=== PATIENT | female | born 1995 | race Caucasian/White ===

== ENCOUNTER 2016-07-09 15:51 | Inpatient (IN) | payer OTHER ==
--- NOTE | ~2016-07-09 | CO ---
Unit #: [id number] #: [id number] Patient: DUNCAN LOWRY V [id number] [place] [address] [id number] MR#: [id number] NAME: DUNCAN LOWRY V. ROOM: P252 Age: 21 Sex: F Admission Date: 07/09/2016 : 1995 Attending Physician: Scout Nash M.D. Primary Care Physician: Mahamed Manning A.P.R.N. Consultation Date: 07/10/2016 CONSULTATION REPORT SUBJECTIVE Duncan is a 21-year-old, who had an abnormal urinalysis on admission. She had no complaints of urgency, frequency, or dysuria. OBJECTIVE Admission urinalysis, 4+ bacteria. ASSESSMENT Urinary tract infection. PLAN Bactrim DS one p.o. b.i.d. x3 days. Dictated by... Padmini Durant P.A.-C. for Varsha Klein/dagoberto TD: 07/12/2016 02:53 JOB #: [id number] CONSULTATION REPORT Page 1 of 1 X Padmini Durant CONSULTATION REPORT
--- NOTE | ~2016-07-09 | DS ---
Unit #: [id number] #: [id number] Patient: DUNCAN LOWRY V [id number] [facility] [address] [place] [address] [id number] I MR#: [id number] NAME: DUNCAN LOWRY V. ROOM: P252 Age: 21 Sex: F Admission Date: 07/09/2016 : 1995 Discharge Date: 07/11/2016 Attending Physician: Scout Nash M.D. Primary Care Physician: Mahamed Manning A.P.R.N. DISCHARGE SUMMARY REASON FOR ADMISSION The patient is a 21-year-old single white female, admitted to the [facility] unit complaining of suicidal ideation. HOSPITAL COURSE The patient was admitted to the [facility] unit and continued on previously prescribed medications. No medication changes were undertaken, but the patient was started on Bactrim DS secondary to a potential urinary tract infection. The patient's stay in the hospital was an otherwise uneventful one. She was already requesting discharge on 07/10/2016, but agreed to remain hospitalized for one further day of observation. By 07/11/2016, the patient was denying suicidal or homicidal ideation and was in bright spirits. She requested discharge, and it was so ordered. FINAL DIAGNOSES Schizoaffective disorder, mild mental retardation. DISPOSITION ON DISCHARGE The patient was discharged on the following medications; Trileptal 600 mg b.i.d. for mood stabilization, Desyrel 100 mg at bedtime p.r.n. insomnia, Abilify 20 mg once daily for mood stabilization, Benadryl 50 mg q.6 hours p.r.n. anxiety, Bactrim DS one tablet b.i.d. for urinary tract infection x3 days. DISCHARGE INSTRUCTIONS No dietary or physical restrictions were placed on the patient at the time of discharge. FOLLOWUP She will follow up through the auspices of community mental health resources. PROGNOSIS The patient's prognosis is considered fair. Dictated by... Scout Nash M.D. CB/dagoberto TD: 07/12/2016 05:36 JOB #: [id number] Unit #: [id number] #: [id number] Patient: DUNCAN LOWRY V DISCHARGE SUMMARY Page 1 of 1 X Scout Nash MD DISCHARGE SUMMARY
--- NOTE | ~2016-07-09 | PA ---
Unit #: [id number] #: [id number] Patient: DUNCAN LOWRY V [id number] [facility] [address] [place] [address] [id number] MR#: [id number] NAME: DUNCAN LOWRY V. ROOM: P252 Age: 21 Sex: F Admission Date: 07/09/2016 : 1995 Date of Assessment: 07/10/2016 Attending Physician: Scout Nash M.D. Admitting Physician: Scout Nash M.D. Primary Care Physician: Mahamed Manning A.P.R.N. PSYCHIATRIC ASSESSMENT IDENTIFYING INFORMATION The patient is a 21-year-old white female well known to this physician. She is readmitted after she had voiced suicidal ideation. CHIEF COMPLAINT None given. INFORMANT Patient, reliability is good. HISTORY OF PRESENT ILLNESS The patient is a 21-year-old white female last admitted to this facility in April of this year under the care of this physician. She is readmitted after reporting increased suicidal ideation. The patient reports that she is currently living with an aunt but wishes to be placed in a [facility]. The patient reports that she was having suicidal thoughts apparently because she does not wish to go to a [facility]. The patient is currently followed at [facility] and did make suicidal threats at that facility. When seen today, the patient states that she is feeling better and is reporting reduction in suicidal ideation. Her current psychotropic medications include Trileptal, trazodone, Abilify, and Benadryl, and she states that she has been compliant with these medications. She denies any recent changes in sleep or appetite and is reporting reduced suicidal ideation when seen today. For more complete history of present illness, please refer to previously dictated notes. PAST PSYCHIATRIC HISTORY Reviewed, no changes. PAST MEDICAL HISTORY Reviewed, no changes. MEDICATIONS Trileptal, trazodone, Abilify, and Benadryl. ALLERGIES None. FAMILY HISTORY Reviewed, no changes. SOCIAL HISTORY Reviewed, no changes. Unit #: [id number] #: [id number] Patient: DUNCAN LOWRY V MENTAL STATUS EXAMINATION Examination at this time reveals the patient to be an obese white female appearing her stated age. She is in no apparent physical distress at the time of examination. She is awake, alert, and oriented in all spheres. Her mood is mildly dysphoric, her affect congruent. Speech is generally well coherent. There are no gross deficits in memory or cognition noted. Intelligence is judged to be in the below average range based on fund of knowledge. The patient is generally cooperative during interview. She is currently reporting positive suicidal ideation. She denies homicidal ideation. She denies any psychotic symptoms. Her judgment and insight appear to be at baseline. ASSETS AND LIABILITIES The patient's assets are to be assessed. Liabilities: Lack of resources. DIAGNOSTIC IMPRESSION 1. Schizoaffective disorder. 2. Mild mental retardation. 3. Obesity. TREATMENT PLAN The patient remains hospitalized for safety and stabilization. At this point, no medication changes will be undertaken as the patient is already reporting some resolution in her thoughts of suicide. ESTIMATED LENGTH OF STAY 2 to 4 days. Dictated by... Scout Nash M.D. JOHAN/suri TD: 07/10/2016 12:50 JOB #: [id number] PSYCHIATRIC ASSESSMENT Page 1 of 1 X Scout Nash MD X PSYCHIATRIC ASSESSMENT
--- NOTE | ~2016-07-09 | HP ---
Unit #: [id number] #: [id number] Patient: DUNCAN LOWRY V [id number] [facility] [address] [place] [address] [id number] I MR#: [id number] NAME: DUNCAN LOWRY V. ROOM: P252 Age: 21 Sex: F Admission Date: 07/09/2016 : 1995 Attending Physician: Scout Nash M.D. Admitting Physician: Scout Nash M.D. Primary Care Physician: Mahamed Manning A.P.R.N. HISTORY AND PHYSICAL HISTORY OF PRESENT ILLNESS Duncan is a 21 year old admitted to [address] [place] [address] with depression verbalizing wanting to hurt herself. She has had numerous admissions to this facility. PAST MEDICAL HISTORY 1. Obesity. 2. MR. PAST SURGICAL HISTORY Nothing reported. ALLERGIES No known drug allergies. SOCIAL HISTORY Smokes one pack per day. Denies alcohol or illicit drug use. FAMILY HISTORY Medically noncontributory. REVIEW OF SYSTEMS CONSTITUTIONAL: No fever or chills. HEENT: Denies any sore throat, ear pain or runny nose. CARDIOVASCULAR: Denies chest pain, irregular heart rhythm or palpitations. CHEST: Denies shortness of breath or cough. No hemoptysis. GASTROINTESTINAL: Denies nausea, vomiting, diarrhea or chronic constipation. ENDOCRINE: Denies history of increased thirst or urination. No recent significant weight loss or gain. GENITOURINARY: Denies dysuria, frequency, or hematuria. SKIN: Denies any rashes. HEMATOLOGIC: Denies history of increased bleeding or bruising. MUSCULOSKELETAL: Denies any hot, swollen joints. No generalized muscle pain. NEUROLOGIC: Denies problems with vision or speech. No frequent, severe headaches. No numbness, tingling or weakness in any extremities. Denies loss of bladder or bowel control. CURRENT MEDICATIONS 1. Abilify 20 mg q. day. 2. Milk of Magnesia p.r.n. 3. Maalox p.r.n. 4. Tylenol p.r.n. Unit #: [id number] #: [id number] Patient: DUNCAN LOWRY V 5. Benadryl p.r.n. 6. Desyrel p.r.n. 7. Trileptal 600 mg b.i.d. 8. Nicotine patch 14 mg q. day. PHYSICAL EXAMINATION GENERAL: Alert, well nourished. No apparent distress. VITAL SIGNS: Blood pressure 130/80, heart rate 80, respirations 16, and temperature 98.6. WEIGHT: 251. HEIGHT: 5 feet 7 inches. SKIN: Warm and dry without rash or lesion. HEENT: Normocephalic. TMs not viewed. Oral and nasal passages clear. Conjunctivae clear. PERRLA. EOMs intact. NECK: Supple without lymphadenopathy or thyromegaly. HEART: Regular rate and rhythm without murmur. LUNGS: Clear. ABDOMEN: Soft, nontender. : Not done. EXTREMITIES: No evidence of cyanosis, clubbing or edema. Moves all without focal deficit. NEUROLOGICAL: Grossly within normal limits. Cranial Nerves: II: Visual reyes are intact. III, IV AND : Extraocular movements are intact. Pupils are equal, round and reactive to light. V: Facial sensation is grossly normal. VII: Facial movements and expression are normal. VIII: Auditory acuity grossly intact. IX, X: Uvula is midline. Phonation is normal. XI: Patient shrugs shoulders and turns head normally. XII: Tongue protrudes in the midline. Sensory and Motor Function: Sensory and motor sensation is grossly normal. Motor: moves all extremities well. Coordination: Gait is normal. Deep Tendon Reflexes: Intact. IMPRESSION Psychiatric admission. RECOMMENDATIONS PSYCHIATRIC: Per psychiatrist. MEDICAL: I see no contraindication to participate in this facility's activities. MEDICAL PROGNOSIS Good. MEDICAL CONDITION Stable. Dictated by... Padmini Durant P.A.-C. for Varsha Klein/suri TD: 07/10/2016 11:08 JOB #: [id number] Unit #: [id number] #: [id number] Patient: DUNCAN LOWRY V HISTORY AND PHYSICAL Page 1 of 1 X Padmini Durant HISTORY AND PHYSICAL
[2016-07-10 10:02] LABS: BASOPHIL% 0.3 % (0-2.5); EOSINOPHIL# 0.1 X10e3 (0-0.7); EOSINOPHIL% 0.8 % (0.0-7.0); HEMATOCRIT 42.6 % (35.0-45.0); HEMOGLOBIN 14.1 gm/dL (12.0-16.0); LYMPHOCYTE# 2.7 X10e3 (1.0-3.5); LYMPHOCYTE% 26.5 % (17.0-45.0); MEAN CELL VOLUME 87.7 FL (83-96); MEAN CORPUSCULAR HEMOGLOBIN 28.9 PG (28-34); MEAN PLATELET VOLUME 8.9 FL (6.5-11.5); MONOCYTE# 0.6 X10e3 (0-1.0); MONOCYTE% 6.1 % (3.0-12.0); NEUTROPHIL# 6.8 X10e3 (1.5-7.1); NEUTROPHIL% 66.3 % (40-75); PLATELET COUNT 262 X10e3 (140-420); RED BLOOD COUNT 4.86 X10e (3.90-5.30); RED CELL DISTRIBUTION WIDTH 13.4 % (11.0-15.5); WHITE BLOOD COUNT 10.3 X10e3 (4.0-10.5)
[2016-07-10 10:08] LABS: DIFF IND NO
[2016-07-10 10:09] LABS: ALBUMIN SERUM 3.8 g/dL (3.5-5.0); BILIRUBIN,TOTAL 0.6 mg/dL (0.2-2.0); BUN/CREATININE RATIO 15.71; CALCIUM SERUM 9.2 mg/dL (8.4-10.2); CREATININE SERUM 0.7 mg/dL (0.6-1.4); GLOM FILT RATE Estimated 123.9 mL/min (>60); POTASSIUM 4.3 mmol/L (3.5-5.1); PROTEIN TOTAL SERUM 7.1 g/dL (6.0-8.3)
[2016-07-10 12:26] LABS: URINE APPEARANCE TURBID; URINE BILIRUBIN NEG (NEG); URINE BLOOD NEG (NEG); URINE COLOR YELLOW; URINE GLUCOSE NEG (NEG); URINE KETONE NEG (NEG); URINE LEUKOCYTE ESTERASE 2+ (NEG); URINE NITRATE NEG (NEG); URINE PH 6.5 (5-8); URINE PROTEIN NEG (NEG); URINE SPECIFIC GRAVITY 1.027 (1.003-1.035)
[2016-07-10 12:32] LABS: URINE BACTERIA AUWI 4+ (NEGATIVE); URINE SQUAMOUS EPITHELIAL CELL MANY /[HPF]; UWBCS1 AUWI 50-100 (0-5)
[2016-07-10 12:50] LABS: AMPHETAMINE NEG (NEG); BARBITURATES NEG (NEG); BENZODIAZEPINES NEG (NEG); COCAINE NEG (NEG); MARIJUANA NEG (NEG); OPIATES NEG (NEG); TRICYCLIC ANTIDEPRESSANTS POS (NEG); U HYALINE CASTS AUWI 0-2 /[LPF]; U METHADONE NEG (NEG); URBCS1 AUWI NEG /[HPF] (0-2); URINE MUCUS PRESENT
== END 2016-07-11 15:45 | disposition home or self-care (01) | DRG 885 ==
LOC: P2L 15:51
PROVIDERS: Specialist
DX: F25.9 Schizoaffective disorder, unspecified (principal); F70 Mild intellectual disabilities; R45.851 Suicidal ideations; N39.0 Urinary tract infection, site not specified; E66.9 Obesity, unspecified; Z68.39 Body mass index [BMI] 39.0-39.9, adult; F17.210 Nicotine dependence, cigarettes, uncomplicated
CPT/HCPCS: 80053; 80307; 81003; 85025

== ENCOUNTER 2016-09-17 21:42 | Inpatient (IN) | payer OTHER ==
--- NOTE | ~2016-09-17 | DS ---
Unit #: [id number] #: [id number] Patient: DUNCAN LOWRY V [id number] [facility] [address] [place] [address] [id number] I MR#: [id number] NAME: DUNCAN LOWRY V. ROOM: [facility] Age: 21 Sex: F Admission Date: 09/18/2016 : 1995 Discharge Date: 09/19/2016 Attending Physician: Scout Nash M.D. Primary Care Physician: Primary Care Physician No DISCHARGE SUMMARY REASON FOR ADMISSION The patient is a 21-year-old white female with a history of schizoaffective disorder and mild mental retardation admitted after she had quarreled with her mother and endorsed suicidal ideation. HOSPITAL COURSE The patient was admitted to the [facility] Unit and placed on suicide precautions. She was continued on previously prescribed medications. Abilify was moved to nighttime dosing given the patient's complaints of daytime sedation. By 09/19/2016, the patient was denying suicidal ideation and requested discharge, and it was so ordered. FINAL DIAGNOSES 1. Schizoaffective disorder. 2. Mild mental retardation. 3. Morbid obesity. DISPOSITION ON DISCHARGE The patient was discharged on the following medications: 1. Abilify 20 mg at bedtime for mood stabilization. 2. Motrin 400 mg q. 6 hours p.r.n. knee pain. 3. Elavil 150 mg at bedtime for sleep. 4. Trileptal 600 mg twice daily for mood stabilization. 5. Depo-Provera 1 vial IM q. month for contraception. DIET AND ACTIVITY No dietary or physical restrictions placed on the patient at the time of discharge. FOLLOWUP Followup will take place through the auspices of [facility] mental health resources. PROGNOSIS Considered fair. Dictated by... Scout Nash M.D. CB/suri Unit #: [id number] #: [id number] Patient: DUNCAN LOWRY V TD: 09/19/2016 12:34 JOB #: [id number] DISCHARGE SUMMARY Page 1 of 1 X Scout Nash MD X DISCHARGE SUMMARY
--- NOTE | ~2016-09-17 | HP ---
Unit #: [id number] #: [id number] Patient: DUNCAN LOWRY V [id number] [place] [address] [id number] I MR#: [id number] NAME: DUNCAN LOWRY V. ROOM: P266 Age: 21 Sex: F Admission Date: 09/18/2016 : 1995 Attending Physician: Scout Nash M.D. Admitting Physician: Scout Nash M.D. Primary Care Physician: Primary Care Physician No HISTORY AND PHYSICAL HISTORY OF PRESENT ILLNESS Duncan is a 21 year old admitted to [address] [place] [address] with depression. PAST MEDICAL HISTORY 1. Obesity 2. MR PAST SURGICAL HISTORY Nothing reported. ALLERGIES No known drug allergies. SOCIAL HISTORY Smokes one pack per day. Denies alcohol and illicit drug use. FAMILY HISTORY Medically noncontributory. REVIEW OF SYSTEMS CONSTITUTIONAL: No fever or chills. HEENT: Denies any sore throat, ear pain or runny nose. CARDIOVASCULAR: Denies chest pain, irregular heart rhythm or palpitations. CHEST: Denies shortness of breath or cough. No hemoptysis. GASTROINTESTINAL: Denies nausea, vomiting, diarrhea or chronic constipation. ENDOCRINE: Denies history of increased thirst or urination. No recent significant weight loss or gain. GENITOURINARY: Denies dysuria, frequency, or hematuria. SKIN: Denies any rashes. HEMATOLOGIC: Denies history of increased bleeding or bruising. MUSCULOSKELETAL: Denies any hot, swollen joints. No generalized muscle pain. NEUROLOGIC: Denies problems with vision or speech. No frequent, severe headaches. No numbness, tingling or weakness in any extremities. Denies loss of bladder or bowel control. CURRENT MEDICATIONS 1. Abilify 20 mg q.h.s. 2. Amitriptyline 150 mg q.h.s. 3. Motrin 400 mg q 6 hours p.r.n. 4. Trileptal 600 mg b.i.d. Unit #: [id number] #: [id number] Patient: DUNCAN LOWRY V 5. Milk of Magnesia p.r.n. 6. Maalox p.r.n. 7. Tylenol p.r.n. 8. DepoProvera 150 mg IM q 90 days PHYSICAL EXAMINATION GENERAL: Alert, obese, in no apparent distress. VITAL SIGNS: Blood pressure 136/80, heart rate 80, respirations 16, temperature 98.6. WEIGHT: 250 pounds. HEIGHT: 5'7". SKIN: Warm and dry without rash or lesion. HEENT: Normocephalic. TMs not viewed. Oral and nasal passages clear. Conjunctivae clear. Pupils equal, round and reactive to light and accommodation. Extraocular movements intact. NECK: Supple without lymphadenopathy or thyromegaly. HEART: Regular rate and rhythm without murmur. LUNGS: Clear. ABDOMEN: Soft, nontender. : Not done. EXTREMITIES: No evidence of cyanosis, clubbing or edema. Moves all extremities without focal deficit. NEUROLOGICAL: Grossly within normal limits. Cranial Nerves: II: Visual reyes are intact. III, IV AND : Extraocular movements are intact. Pupils are equal, round and reactive to light. V: Facial sensation is grossly normal. VII: Facial movements and expression are normal. VIII: Auditory acuity grossly intact. IX, X: Uvula is midline. Phonation is normal. XI: Patient shrugs shoulders and turns head normally. XII: Tongue protrudes in the midline. Sensory and Motor Function: Sensory and motor sensation is grossly normal. Motor: moves all extremities well. Coordination: Gait is normal. Deep Tendon Reflexes: Intact. IMPRESSION Psychiatric admission. RECOMMENDATIONS PSYCHIATRIC: Per psychiatrist. MEDICAL: I see no contraindications to participating in facility's activities. MEDICAL PROGNOSIS Good. MEDICAL CONDITION Stable. Dictated by... Padmini Durant P.A.-C. for Varsha Klein/emily Unit #: [id number] #: [id number] Patient: DUNCAN LOWRY V TD: 09/18/2016 21:05 JOB #: [id number] HISTORY AND PHYSICAL Page 1 of 1 X Padmini Durant HISTORY AND PHYSICAL
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
[2016-09-18 09:38] LABS: BASOPHIL% 0.2 % (0-2.5); EOSINOPHIL# 0.1 X10e3 (0-0.7); EOSINOPHIL% 0.6 % (0.0-7.0); HEMATOCRIT 39.5 % (35.0-45.0); HEMOGLOBIN 13.2 gm/dL (12.0-16.0); LYMPHOCYTE% 27.3 % (17.0-45.0); MEAN CORPUSCULAR HEMOGLOBIN 29.1 PG (28-34); MEAN CORPUSCULAR HGB CONC 33.5 g/dL (30-36); MEAN PLATELET VOLUME 8.7 FL (6.5-11.5); MONOCYTE# 0.7 X10e3 (0-1.0); MONOCYTE% 6.5 % (3.0-12.0); NEUTROPHIL# 7.2 X10e3 (1.5-7.1); NEUTROPHIL% 65.4 % (40-75); PLATELET COUNT 272 X10e3 (140-420); RED BLOOD COUNT 4.54 X10e (3.90-5.30); RED CELL DISTRIBUTION WIDTH 13.7 % (11.0-15.5)
[2016-09-18 09:58] LABS: DIFF IND NO
[2016-09-18 10:24] LABS: ALBUMIN SERUM 3.7 g/dL (3.5-5.0); BILIRUBIN,TOTAL 0.5 mg/dL (0.2-2.0); BUN/CREATININE RATIO 14.28; CALCIUM SERUM 9.1 mg/dL (8.4-10.2); CREATININE SERUM 0.7 mg/dL (0.6-1.4); GLOM FILT RATE Estimated 123.9 mL/min (>60); PROTEIN TOTAL SERUM 6.8 g/dL (6.0-8.3)
[2016-09-18 10:27] LABS: THYROID STIMULATING HORMONE 3.06 uIU/ml (0.34-5.60)
[2016-09-18 10:36] LABS: FREE THYROXIN (T4) 0.48 ng/dL (0.58-1.64)
[2016-09-18 12:32] LABS: URINE APPEARANCE TURBID; URINE BILIRUBIN NEG (NEG); URINE BLOOD TRACE (NEG); URINE COLOR YELLOW; URINE GLUCOSE NEG (NEG); URINE KETONE NEG (NEG); URINE LEUKOCYTE ESTERASE 2+ (NEG); URINE NITRATE NEG (NEG); URINE PH 5.5 (5-8); URINE PROTEIN TRACE (NEG); URINE SPECIFIC GRAVITY 1.026 (1.003-1.035); URINE UROBILINOGEN 0.2 MG/DL (NEG)
[2016-09-18 12:35] LABS: URINE BACTERIA AUWI 4+ (NEGATIVE); URINE SQUAMOUS EPITHELIAL CELL MANY /[HPF]; UWBCS1 AUWI 50-100 (0-5)
[2016-09-18 12:58] LABS: AMPHETAMINE NEG (NEG); BARBITURATES NEG (NEG); BENZODIAZEPINES NEG (NEG); COCAINE NEG (NEG); MARIJUANA NEG (NEG); OPIATES NEG (NEG); TRICYCLIC ANTIDEPRESSANTS POS (NEG); U METHADONE NEG (NEG)
== END 2016-09-19 18:30 | disposition home or self-care (01) | DRG 885 ==
LOC: P2L 09-18 03:14
PROVIDERS: Specialist
DX: F25.9 Schizoaffective disorder, unspecified (principal); R45.851 Suicidal ideations; E66.01 Morbid (severe) obesity due to excess calories; F70 Mild intellectual disabilities
CPT/HCPCS: 80053; 80307; 81003; 84439; 84443; 84703; 85025

== ENCOUNTER 2016-10-21 20:58 | Inpatient (IN) | payer OTHER ==
[~2016-10-21] VITALS: Ht 170.2 cm; Wt 117.9 kg
--- NOTE | ~2016-10-21 | PN ---
Unit #: [id number] #: [id number] Patient: DUNCAN LOWRY [id number] [facility] [address] [place] [address] [id number] I MR#: [id number] NAME: DUNCAN LOWRY ROOM: P122 Age: 21 Sex: F Admission Date: 10/21/2016 : 1995 Attending Physician: Scout Nash M.D. Admitting Physician: Scout Nash M.D. Primary Care Physician: Primary Care Physician [place] ALLISON PROGRESS NOTES DATE 10/23/2016 DISCUSSION The patient reports some reduction in suicidal ideation when seen today and is generally pleasant and cooperative with peers and staff. We continue current treatment. Dictated by... Scout Nash M.D. CB/sánchez TD: 10/23/2016 16:14 JOB #: [id number] [facility] PROGRESS NOTES Page 1 of 1 X Scout Nash MD X PROGRESS NOTE
--- NOTE | ~2016-10-21 | DS ---
Unit #: [id number] #: [id number] Patient: DUNCAN LOWRY [id number] [facility] [address] [place] [address] [id number] MR#: [id number] NAME: DUNCAN LOWRY ROOM: [facility] Age: 21 Sex: F Admission Date: 10/21/2016 : 1995 Discharge Date: 10/24/2016 Attending Physician: Scout Nash M.D. Primary Care Physician: No Primary Care Physician DISCHARGE SUMMARY REASON FOR ADMISSION The patient is a 21-year-old, single, white female admitted to the hospital after she had made suicidal threats after complaining about her father's driving on a trip home from "[place]." HOSPITAL COURSE The patient was admitted to the [address] [place] [address] unit and placed on suicide precautions. She was restarted on previously prescribed medications. Her stay in the hospital was a brief and uneventful one. By 10/24, she reported a reduction in suicidal ideation and requested discharge. It was so ordered. FINAL DIAGNOSES 1. Schizoaffective disorder. 2. Mild mental retardation. DISPOSITION On discharge, the patient is discharged on the following medications: 1. Amitriptyline 150 mg at bedtime for insomnia. 2. Abilify 20 mg daily for mood stabilization. 3. Motrin 400 mg q.6 hours p.r.n. pain. 4. Trileptal 600 mg twice daily for mood stabilization. DIET AND ACTIVITY No dietary or physical restrictions placed on the patient at the time of discharge. FOLLOWUP To take place through the auspices of "[facility]." PROGNOSIS The patient's prognosis is considered fair. Dictated by... Scout Nash M.D. CB/filemon TD: 10/25/2016 12:56 JOB #: [id number] Unit #: [id number] #: [id number] Patient: DUNCAN LOWRY DISCHARGE SUMMARY Page 1 of 1 X Scout Nash MD X DISCHARGE SUMMARY
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
--- NOTE | ~2016-10-21 | HP ---
Unit #: [id number] #: [id number] Patient: DUNCAN LOWRY [id number] [facility] [address] [place] [address] [id number] MR#: [id number] NAME: DUNCAN LOWRY ROOM: P122 Age: 21 Sex: F Admission Date: 10/21/2016 : 1995 Attending Physician: Scout Nash M.D. Admitting Physician: Scout Nash M.D. Primary Care Physician: Primary Care Physician No HISTORY AND PHYSICAL HISTORY OF PRESENT ILLNESS Duncan is a 21-year-old female admitted to [address] [place] [address] for suicidal ideation and anxiety. PAST MEDICAL HISTORY Obesity. PAST SURGICAL HISTORY None. SOCIAL HISTORY Denies tobacco, alcohol or illegal drug use. She is currently single and living with her aunt and her uncle. FAMILY HISTORY Noncontributory. REVIEW OF SYSTEMS CONSTITUTIONAL: No fever or chills. HEENT: Denies any sore throat, ear pain or runny nose. CARDIOVASCULAR: Denies chest pain, irregular heart rhythm or palpitations. CHEST: Denies shortness of breath or cough. No hemoptysis. GASTROINTESTINAL: Denies nausea, vomiting, diarrhea or chronic constipation. ENDOCRINE: Denies history of increased thirst or urination. No recent significant weight loss or gain. GENITOURINARY: Denies dysuria, frequency, or hematuria. SKIN: Denies any rashes. HEMATOLOGIC: Denies history of increased bleeding or bruising. MUSCULOSKELETAL: Denies any hot, swollen joints. No generalized muscle pain. NEUROLOGIC: Denies problems with vision or speech. No frequent, severe headaches. No numbness, tingling or weakness in any extremities. Denies loss of bladder or bowel control. CURRENT MEDICATIONS Amitriptyline, Abilify, Motrin, Trileptal. ALLERGIES No known drug allergies. Unit #: [id number] #: [id number] Patient: DUNCAN LOWRY PHYSICAL EXAMINATION GENERAL: Alert, oriented, in no acute distress. VITAL SIGNS: Blood pressure 151/87, heart rate 125, respirations 24, temperature 97.8. HEIGHT: 5 foot 7 inches. WEIGHT: 260 pounds. SKIN: Warm and dry without rash or lesion. HEENT: Normocephalic. TMs not viewed. Oral and nasal passages clear. Conjunctivae clear. PERRLA. EOMs intact. NECK: Supple without lymphadenopathy or thyromegaly. HEART: Regular rate and rhythm without murmur. LUNGS: Clear. ABDOMEN: Soft, nontender, without masses or hepatosplenomegaly. : Not done. EXTREMITIES: No evidence of cyanosis, clubbing or edema. Moves all without focal deficit. NEUROLOGICAL: Grossly within normal limits. Cranial Nerves: II: Visual reyes are intact. III, IV AND : Extraocular movements are intact. Pupils are equal, round and reactive to light. V: Facial sensation is grossly normal. VII: Facial movements and expression are normal. VIII: Auditory acuity grossly intact. IX, X: Uvula is midline. Phonation is normal. XI: Patient shrugs shoulders and turns head normally. XII: Tongue protrudes in the midline. Sensory and Motor Function: Sensory and motor sensation is grossly normal. Motor: moves all extremities well. Coordination: Gait is normal. Deep Tendon Reflexes: Intact. IMPRESSION 1. Psychiatric admission. 2. Obesity. RECOMMENDATIONS Psychiatric, per psychiatrist. MEDICAL: I see no contraindications to participating in facility's activities. MEDICAL PROGNOSIS Good. MEDICAL CONDITION Stable. Dictated by... Odalis Fernandez TD: 10/23/2016 00:53 JOB #: [id number] Unit #: [id number] #: [id number] Patient: DUNCAN LOWRY HISTORY AND PHYSICAL Page 1 of 1 X MAXWELL RAMESH APRN X HISTORY AND PHYSICAL
[2016-10-22 10:44] LABS: AMPHETAMINE NEG (NEG); BARBITURATES NEG (NEG); BENZODIAZEPINES NEG (NEG); COCAINE NEG (NEG); MARIJUANA NEG (NEG); OPIATES NEG (NEG); TRICYCLIC ANTIDEPRESSANTS POS (NEG); U METHADONE NEG (NEG)
== END 2016-10-24 17:39 | disposition home or self-care (01) | DRG 885 ==
LOC: P1S 22:50
PROVIDERS: Specialist
DX: F25.9 Schizoaffective disorder, unspecified (principal); F70 Mild intellectual disabilities; E66.9 Obesity, unspecified
CPT/HCPCS: 80307; 84703

== ENCOUNTER 2016-11-04 23:00 | Inpatient (IN) | payer OTHER ==
[~2016-11-04] VITALS: Ht 170.2 cm; Wt 117.9 kg
--- NOTE | ~2016-11-04 | EKG ---
PATIENT: DUNCAN LOWRY UNIT #: [id number] Ventricular Rate: 99 BPM Atrial Rate: 99 BPM P-R Interval: 130 ms QRS Duration: 78 ms Q-T Interval: 358 ms QTC Calculation(Bezet): 459 ms P Leroy: 52 degrees Calculated R Leroy: 49 degrees Calculated T Leroy: 37 degrees Diagnosis Line: Poor data quality, interpretation may be Diagnosis Line: adversely affected Diagnosis Line: Normal sinus rhythm Diagnosis Line: Normal ECG Diagnosis Line: No previous ECGs available Diagnosis Line: Confirmed by NEO HYDE MD ([id number]) on 11/06/2016 Diagnosis Line: 7:07:06 PM INTERPRETING MD: BARRETT POND
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
--- NOTE | ~2016-11-04 | PN ---
Unit #: [id number] #: [id number] Patient: DUNCAN LOWRY V [id number] [facility] [address] [place] [address] [id number] I MR#: [id number] NAME: DUNCAN LOWRY V. ROOM: 32 Age: 21 Sex: F Admission Date: 11/05/2016 : 1995 Attending Physician: Scout Nash M.D. Admitting Physician: Scout Nash M.D. Primary Care Physician: Primary Care Physician [place] ZELAYA NOTES DATE 11/06/2016 DISCUSSION The patient is brighter today and is pushing for discharge. I have her to expect a.m. discharge. Dictated by... Scout Nash M.D. CB/emily TD: 11/06/2016 19:37 JOB #: [id number] [facility] PROGRESS NOTES Page 1 of 1 X Scout Nash MD X PROGRESS NOTE
--- NOTE | ~2016-11-04 | HP ---
Unit #: [id number] #: [id number] Patient: DUNCAN LOWRY V [id number] [place] [address] [id number] I MR#: [id number] NAME: DUNCAN LOWRY V. ROOM: P132 Age: 21 Sex: F Admission Date: 11/05/2016 : 1995 Attending Physician: Scout Nash M.D. Admitting Physician: Scout Nash M.D. Primary Care Physician: Primary Care Physician No HISTORY AND PHYSICAL HISTORY OF PRESENT ILLNESS Duncan is a 21 year old admitted to [address] [place] [address] with depression verbalizing wanting to hurt herself. PAST MEDICAL HISTORY 1. Obesity. 2. MR. PAST SURGICAL HISTORY Nothing reported. ALLERGIES No known drug allergies. SOCIAL HISTORY Smokes 1 pack per day. Denies alcohol and illicit drug use. FAMILY HISTORY Medically noncontributory. REVIEW OF SYSTEMS CONSTITUTIONAL: No fever or chills. HEENT: Denies any sore throat, ear pain or runny nose. CARDIOVASCULAR: Denies chest pain, irregular heart rhythm or palpitations. CHEST: Denies shortness of breath or cough. No hemoptysis. GASTROINTESTINAL: Denies nausea, vomiting, diarrhea or chronic constipation. ENDOCRINE: Denies history of increased thirst or urination. No recent significant weight loss or gain. GENITOURINARY: Denies dysuria, frequency, or hematuria. SKIN: Denies any rashes. HEMATOLOGIC: Denies history of increased bleeding or bruising. MUSCULOSKELETAL: Denies any hot, swollen joints. No generalized muscle pain. NEUROLOGIC: Denies problems with vision or speech. No frequent, severe headaches. No numbness, tingling or weakness in any extremities. Denies loss of bladder or bowel control. CURRENT MEDICATIONS 1. Amitriptyline 150 mg q.h.s. 2. Trileptal 600 mg b.i.d. 3. Abilify 20 mg q.a.m. 4. Milk of Magnesia p.r.n. Unit #: [id number] #: [id number] Patient: DUNCAN LOWRY V 5. Maalox p.r.n. 6. Tylenol p.r.n. 7. Motrin p.r.n. PHYSICAL EXAMINATION GENERAL: Alert, obese, in no apparent distress. VITAL SIGNS: Blood pressure 130/62, heart rate 100, respirations 16, temperature 98.6. WEIGHT: 260. HEIGHT: 5 feet 7 inches. SKIN: Warm and dry without rash or lesion. HEENT: Normocephalic. TMs not viewed. Oral and nasal passages clear. Conjunctivae clear. PERRLA. EOMs intact. NECK: Supple without lymphadenopathy or thyromegaly. HEART: Regular rate and rhythm without murmur. LUNGS: Clear. ABDOMEN: Soft, nontender. : Not done. EXTREMITIES: No evidence of cyanosis, clubbing or edema. Moves all without focal deficit. NEUROLOGICAL: Grossly within normal limits. Cranial Nerves: II: Visual reyes are intact. III, IV AND : Extraocular movements are intact. Pupils are equal, round and reactive to light. V: Facial sensation is grossly normal. VII: Facial movements and expression are normal. VIII: Auditory acuity grossly intact. IX, X: Uvula is midline. Phonation is normal. XI: Patient shrugs shoulders and turns head normally. XII: Tongue protrudes in the midline. Sensory and Motor Function: Sensory and motor sensation is grossly normal. Motor: moves all extremities well. Coordination: Gait is normal. Deep Tendon Reflexes: Intact. IMPRESSION Psychiatric admission. RECOMMENDATIONS PSYCHIATRIC: Per psychiatrist. MEDICAL: See no contraindication to participate in facility's activities. MEDICAL PROGNOSIS Good. MEDICAL CONDITION Stable. Dictated by... Padmini Durant P.A.-C. for Varsha Klein/sánchez TD: 11/05/2016 15:20 JOB #: [id number] Unit #: [id number] #: [id number] Patient: DUNCAN LOWRY V HISTORY AND PHYSICAL Page 1 of 1 X Padmini Durant HISTORY AND PHYSICAL
--- NOTE | ~2016-11-04 | DS ---
Unit #: [id number] #: [id number] Patient: DUNCAN LOWRY V [id number] [place] [address] [id number] I MR#: [id number] NAME: DUNCAN LOWRY V. ROOM: [facility] Age: 21 Sex: F Admission Date: 11/05/2016 : 1995 Discharge Date: 11/07/2016 Attending Physician: Scout Nash M.D. Primary Care Physician: Primary Care Physician No DISCHARGE SUMMARY REASON FOR ADMISSION The patient is a 21-year-old white female with a history of schizoaffective disorder and mild mental retardation, admitted after she had voiced suicidal ideation. HOSPITAL COURSE The patient was admitted to the [address] [place] [address] Unit and continued on previously prescribed medications. Her stay in the hospital was brief and uneventful, and she did on 11/05/2016 complain of chest pain but was found to have no abnormalities per EKG. By 11/07/2016, as had expected by this physician, the patient was requesting discharge, and it was so ordered. FINAL DIAGNOSES 1. Schizoaffective disorder. 2. Mild mental retardation. 3. Morbid obesity. DISPOSITION ON DISCHARGE The patient was discharged on the following medications: 1. Elavil 150 mg at bedtime for insomnia. 2. Abilify 20 mg daily for psychosis. 3. Motrin 400 mg q. 6 hours p.r.n. pain 4. Trileptal 600 mg twice daily for chronic pain. 5. Lotrisone cream apply twice daily to affected area for rash. 6. Gold Aguillon powder apply twice daily to affected area for rash. DIET AND ACTIVITY No dietary or physical restrictions placed on the patient at the time of discharge. FOLLOWUP Followup will take place through the auspices of [facility]. PROGNOSIS Considered fair. Dictated by... Scout Nash M.D. CB/suri Unit #: [id number] #: [id number] Patient: DUNCAN LOWRY V TD: 11/07/2016 14:45 JOB #: [id number] DISCHARGE SUMMARY Page 1 of 1 X Scout Nash MD X DISCHARGE SUMMARY
== END 2016-11-07 15:55 | disposition home or self-care (01) | DRG 885 ==
LOC: P1S 11-05 01:27
DX: F25.9 Schizoaffective disorder, unspecified (principal); Z68.41 Body mass index [BMI] 40.0-44.9, adult; F70 Mild intellectual disabilities; E66.01 Morbid (severe) obesity due to excess calories; F17.210 Nicotine dependence, cigarettes, uncomplicated

== ENCOUNTER 2016-11-25 19:35 | Inpatient (IN) | payer OTHER ==
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
--- NOTE | ~2016-11-25 | HP ---
Unit #: [id number] #: [id number] Patient: DUNCAN LOWRY V [id number] [facility] [address] [place] [address] [id number] I MR#: [id number] NAME: DUCNAN LOWRY V. ROOM: P122 Age: 21 Sex: F Admission Date: 11/25/2016 : 1995 Attending Physician: Scout Nash M.D. Admitting Physician: Scout Nash M.D. Primary Care Physician: Primary Care Physician No HISTORY AND PHYSICAL HISTORY OF PRESENT ILLNESS Duncan is a 21-year-old admitted to [address] [place] [address] with depression and verbalizing wanting to hurt herself. She has had numerous admissions to this facility for same. The patient was seen and history and physical dated 11/05/2016 was reviewed. This is current. No changes. Please see history and physical dated 11/05/2016. Dictated by... Padmini Durant P.A.-C. for Varsha Klein/emily TD: 11/26/2016 21:18 JOB #: [id number] HISTORY AND PHYSICAL Page 1 of 1 X Padmini Durant HISTORY AND PHYSICAL
--- NOTE | ~2016-11-25 | CO ---
Unit #: [id number] #: [id number] Patient: DUNCAN LOWRY V [id number] [place] [address] [id number] I MR#: [id number] NAME: DUNCAN LOWRY V. ROOM: [facility] Age: 21 Sex: F Admission Date: 11/25/2016 : 1995 Attending Physician: Scout Nash M.D. Consultation Date: 11/26/2016 CONSULTATION REPORT SUBJECTIVE Duncan is a 21-year-old admitted to [address] [place] [address]. At the time of admission, personal intake concerned that she may have scabies. We have been asked to assess and give recommendations. The patient was seen for her admission H and P on 11/26/2016. At that time, there was no rash for "bug bites" noted. Skin was warm and dry without rash or lesion. We did not see any evidence of scabies or other insect infestation. No Rx was ordered. Dictated by... Padmini Durant P.A.-C. for Varsha Klein/dagoberto TD: 11/28/2016 17:34 JOB #: [id number] CONSULTATION REPORT Page 1 of 1 X Padmini Durant CONSULTATION REPORT
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
--- NOTE | ~2016-11-25 | PN ---
Unit #: [id number] #: [id number] Patient: DUNCAN LOWRY V [id number] [facility] [address] [place] [address] [id number] I MR#: [id number] NAME: DUNCAN LOWRY V. ROOM: P122 Age: 21 Sex: F Admission Date: 11/25/2016 : 1995 Attending Physician: Scout Nash M.D. Admitting Physician: Scout Nash M.D. Primary Care Physician: Primary Care Physician [place] ALLISON PROGRESS NOTES DATE 11/27/2016 DISCUSSION The patient is abed today and offers no new complaints. She is reporting reduced suicidal ideation, and should she sustain progress discharge will take place tomorrow. Dictated by... Scout Nash M.D. CB/bzg TD: 11/27/2016 14:54 JOB #: [id number] [facility] PROGRESS NOTES Page 1 of 1 X Scout Nash MD X PROGRESS NOTE
[2016-11-26 09:44] LABS: BASOPHIL% 0.3 % (0-2.5); EOSINOPHIL# 0.1 X10e3 (0-0.7); EOSINOPHIL% 0.8 % (0.0-7.0); HEMATOCRIT 40.2 % (35.0-45.0); HEMOGLOBIN 13.5 gm/dL (12.0-16.0); LYMPHOCYTE# 2.9 X10e3 (1.0-3.5); LYMPHOCYTE% 31.5 % (17.0-45.0); MEAN CELL VOLUME 88.3 FL (83-96); MEAN CORPUSCULAR HEMOGLOBIN 29.6 PG (28-34); MEAN CORPUSCULAR HGB CONC 33.5 g/dL (30-36); MEAN PLATELET VOLUME 9.1 FL (6.5-11.5); MONOCYTE# 0.7 X10e3 (0-1.0); MONOCYTE% 7.5 % (3.0-12.0); NEUTROPHIL# 5.6 X10e3 (1.5-7.1); NEUTROPHIL% 59.9 % (40-75); PLATELET COUNT 260 X10e3 (140-420); RED BLOOD COUNT 4.55 X10e (3.90-5.30); RED CELL DISTRIBUTION WIDTH 13.8 % (11.0-15.5); WHITE BLOOD COUNT 9.3 X10e3 (4.0-10.5)
[2016-11-26 09:54] LABS: DIFF IND NO
[2016-11-26 10:37] LABS: ALBUMIN SERUM 3.7 g/dL (3.5-5.0); BILIRUBIN,TOTAL 0.5 mg/dL (0.2-2.0); BUN/CREATININE RATIO 17.14; CALCIUM SERUM 9.2 mg/dL (8.4-10.2); CREATININE SERUM 0.7 mg/dL (0.6-1.4); GLOM FILT RATE Estimated 123.9 mL/min (>60); POTASSIUM 4.1 mmol/L (3.5-5.1); PROTEIN TOTAL SERUM 6.8 g/dL (6.0-8.3)
== END 2016-11-28 16:38 | disposition home or self-care (01) | DRG 885 ==
LOC: P1S 21:42
PROVIDERS: Specialist
DX: F25.9 Schizoaffective disorder, unspecified (principal); R45.851 Suicidal ideations; Z68.41 Body mass index [BMI] 40.0-44.9, adult; E66.01 Morbid (severe) obesity due to excess calories; F70 Mild intellectual disabilities
CPT/HCPCS: 80053; 84703; 85025